=== PATIENT | female | born 1980 | race Caucasian/White ===

== ENCOUNTER 2018-12-15 12:18 | Emergency (ER) | payer OTHER ==
[~2018-12-15] VITALS: Ht 157.5 cm; Wt 82.1 kg
[~2018-12-15 12:18] MED LIST: ALBU90OI61 INH; CLARITIN10 MG PO; DULERA 100 MCG/13 GM INH; Phenergan6.25 MG/5 PO; Prednisone20 MG PO; Pseudoephedrine30 MG PO
[2018-12-15 12:49] LABS: Source, Urine Clean Catch
[2018-12-15 12:56] LABS: Bilirubin, Urine Neg (Neg); Blood, Urine 5+ (Neg); Glucose Qualitative, Urine Neg (Neg); Ketones, Urine Neg (Neg); Leukocyte Esterase, Urine 3+ (Neg); Nitrite, Urine Neg (Neg); Protein, Urine 2+ (Neg); Specific Gravity, Urine 1.005 (1.003-1.022); Urobilinogen, Urine NORM (Normal)
[2018-12-15 13:09] LABS: Appearance, Urine Hazy (Clear); Color, Urine Yellow (P-Yellow)
[2018-12-15 13:13] LABS: BASOPHILS ABSOLUTE AUTO 0.03 K/mm3 (0.00-0.23); BASOPHILS PERCENT AUTO 0 % (0-2); EOSINOPHILS ABSOLUTE AUTO 0.07 K/mm3 (0.00-0.68); EOSINOPHILS PERCENT AUTO 1 % (0-6); Hematocrit 41.4 % (33.0-51.0); Hemoglobin 13.9 g/dL (11.5-16.0); IMMATURE GRAN ABSOLUTE AUTO 0.03 K/mm3 (0.00-0.10); IMMATURE GRAN PERCENT AUTO 0 % (0-1); LYMPHOCYTES ABSOLUTE AUTO 1.93 K/mm3 (0.84-5.20); LYMPHOCYTES PERCENT AUTO 18 % (21-46); MONOCYTES ABSOLUTE AUTO 0.68 K/mm3 (0.16-1.47); MONOCYTES PERCENT AUTO 6 % (4-13); Mean Corpuscular HGB 30.6 pg (26.0-34.0); Mean Corpuscular HGB Conc 33.6 g/dL (31.5-36.5); Mean Corpuscular Volume 91 fL (80-100); Mean Platelet Volume 11.7 fL (9.1-12.4); NEUTROPHILS ABSOLUTE AUTO 7.93 K/mm3 (1.96-9.15); NEUTROPHILS PERCENT AUTO 74 % (41-73); Platelet Count 217 K/mm3 (150-400); RDW Coefficient Variation 12.3 % (11.7-14.2); RDW Standard Deviation 41.1 fL (35.1-46.3); Red Blood Cell Count 4.54 M/mm3 (3.80-5.20); White Blood Cell Count 10.67 K/mm3 (4.00-11.30)
[2018-12-15 13:21] LABS: Red Blood Cells, Urine 25-50 /hpf (0-2)
[2018-12-15 13:23] LABS: Squamous Epithelial Cells Few /hpf (Few)
[2018-12-15 13:24] LABS: Bacteria Mod /hpf
[2018-12-15 13:30] LABS: Alanine Aminotransfer (ALT/SGP 23 U/L (12-78); Albumin, Blood 3.9 g/dL (3.4-5.0); Albumin/Globulin Ratio 1.1 (0.8-1.8); Alk Phos 63 U/L (50-136); Anion Gap 7 mmol/L (6-16); Aspartate Aminotrans (AST/SGOT 16 U/L (12-37); Bilirubin, Total 0.3 mg/dL (0.1-1.0); Blood Urea Nitrogen 9 mg/dL (8-24); Bun/Creatinine Ratio 17.4 (12.0-20.0); CO2, Blood 25 mmol/L (21-32); Calcium, Blood 8.9 mg/dL (8.5-10.1); Chloride, Blood 109 mmol/L (98-108); Creatinine, Blood 0.52 mg/dL (0.40-1.00); Globulin, Blood 3.7 g/dL (2.2-4.0); Glomerular Filtration Rate >60 (60-); Glucose, Blood 97 mg/dL (70-99); Potassium, Blood 3.9 mmol/L (3.5-5.5); Sodium, Blood 141 mmol/L (136-145); Total Protein, Blood 7.6 g/dL (6.4-8.2)
== END 2018-12-15 15:13 | disposition home or self-care (01) ==
LOC: ER 12:18
PROVIDERS: Physician Assistant
DX: O03.9 Complete or unspecified spontaneous abortion without complication (principal); D25.9 Leiomyoma of uterus, unspecified; J45.909 Unspecified asthma, uncomplicated; Z88.1 Allergy status to other antibiotic agents; Z88.8 Allergy status to other drugs, medicaments and biological substances; Z79.899 Other long term (current) drug therapy
CPT/HCPCS: 36415; 76801; 76817; 80053; 81001; 84702; 84703; 85025; 86900; 86901; 87086; 99284-25

== ENCOUNTER 2023-11-15 08:38 | Day surgery (SDC) | payer OTHER ==
[~2023-11-15] VITALS: Ht 167.6 cm; Wt 90.0 kg
[~2023-11-15 08:38] MED LIST changes: +Lactated Ringer's 1,000 ML IV ONE
[2023-11-15] MEDS ORDERED: Ampicillin Sod/Sulbactam Sod 1.5 GM in NS 100 ML IV SCH (09:20)
[2023-11-15] MEDS ORDERED: DROSPIRENONE-E1 EAC3 PO (09:20)
[2023-11-15] MEDS ORDERED: Flonase 0.05% N16 GM (09:20)
[2023-11-15] MEDS ORDERED: SUMA25 PO (09:21)
[2023-11-15] MEDS ORDERED: VITAMIN D310 MC4 PO (09:22)
[2023-11-15] MEDS ORDERED: Lactated Ringer's 1,000 ML IV ONE ×2 (09:29→11:38)
--- NOTE | 2023-11-15 09:46 | NUR ---
11/15/23 0946 Ashley Montoya SPOUSE NEELAM AT BEDSIDE WITH PT. PT PROVIDED WARM BLANKETS X2. BED IN LOWEST POISITON. CALL LIGHT WITHIN REACH.
[2023-11-15] MEDS ORDERED: FentaNYL Citrate 50 MCG/ML 2 ML Injection ONE (10:57)
[2023-11-15] MEDS ORDERED: propofoL 20 ML IV ONE (10:58)
--- NOTE | 2023-11-15 11:19 | NUR ---
11/15/23 1119 Mat Francis ABDOMINAL AREA PREPPED W/ DURAPREP BY KNM. PABLO AREA & THIGHS WITH BETADINE SOLUTION BY PKB.
[2023-11-15] MEDS ORDERED: Ropivacaine 0.5% HCl/Pf 5 MG/ML 20ML VIAL INJ ONE (11:22)
[2023-11-15] MEDS ORDERED: EPINEPhrine HCl 1 MG/ML 1ML Amp XX ONE (11:22)
[2023-11-15] MEDS ORDERED: Ondansetron HCl 2 MG / ML 2ML Vial ONE (11:49)
[2023-11-15] MEDS ORDERED: Dexamethasone Sod Phos 10 MG/ML 1ML VIAL ONE (11:49)
[2023-11-15] MEDS ORDERED: Rocuronium Bromide 10 MG/ML 5ML Injection IV ONE (11:49)
[2023-11-15] MEDS ORDERED: Ketorolac Tromethamine 30mg Vial ONE (11:51)
[2023-11-15] MEDS ORDERED: Sugammadex Sodium 200 MG/2ML SDV (100 MG/ML) ONE (11:51)
[2023-11-15] MEDS ORDERED: HYDROmorphone HCl/Pf 1MG SYR ONE (12:19)
--- NOTE | 2023-11-15 12:30 | NUR ---
11/15/23 1230 Darryn Santoyo DILAUDID 0.5MG IV GIVEN AT 1225 FOR 9/10 ABDOMINAL PAIN
[2023-11-15 13:03] VITALS: BP 125/63
[2023-11-15] MEDS ORDERED: HYDROcodone 5-APAP 325 TAB ONE (13:13)
--- NOTE | 2023-11-15 13:21 | NUR ---
11/15/23 1321 Darryn Santoyo 5/325 PO ONE TAB GIVEN AT 1320 FOR PAIN AT 6/10 TO ABDOMEN
== END 2023-11-15 13:40 | disposition home or self-care (01) ==
LOC: ORSCSDS 08:38 → ORD 01-27 11:30
PROVIDERS: Obstetrics & Gynecology
PROC: 0UT74ZZ Resection of Bilateral Fallopian Tubes, Percutaneous Endoscopic Approach (ICD-10-PCS; principal; 2023-11-15 10:00)
DX: Z30.2 Encounter for sterilization (principal); Z86.16 Personal history of COVID-19; N80.9 Endometriosis, unspecified; D25.9 Leiomyoma of uterus, unspecified; Q85.00 Neurofibromatosis, unspecified; J45.909 Unspecified asthma, uncomplicated; F41.9 Anxiety disorder, unspecified; Z79.899 Other long term (current) drug therapy
CPT/HCPCS: 88302; A9270; J0171; J0295; J1100; J1170; J1885; J2405; J2704; J2795; J3010; J7120